=== PATIENT | female | born 2000 | race Caucasian/White ===

== ENCOUNTER 2019-06-17 18:03 | Emergency (ER) | payer MEDICAID ==
[2019-06-17] MEDS ORDERED: KETOROLAC TROMETHAMINE 60 MG/2 ML SDV IM ONE (20:08)
[2019-06-17] MEDS ORDERED: PROMETHAZINE HCL INJ 25 MG/1 ML VIAL IM ONE (20:08)
--- NOTE | 2019-06-17 20:10 | ER Document Report ---
ED Medical Screen (RME) - General Chief Complaint: Abdominal Pain Stated Complaint: ABDOMINAL PAIN POSSIBLE SIDE PAIN Time Seen by Provider: 06/17/19 20:01 Mode of Arrival: Wheelchair Information source: Patient Notes: Otherwise healthy 18-year-old female presenting with right lower quadrant abdominal pain. Patient reports pain started abruptly at 430 this afternoon. She reports associated nausea with vomiting, denies diarrhea or fever. She does report pain is worse with any movement. She states that she has had ovarian cysts in the past however this does not feel the same as that is the pain is any higher location. Exam: Point tenderness in the right lower quadrant although exam is limited due to patient's position in triage and unable to lay patient completely flat. I do suspect possible appendicitis with this patient so we are drawing labs immediately and I will monitor and add on appropriate imaging based upon lab results. I have greeted and performed a rapid initial assessment of this patient. A comprehensive ED assessment and evaluation of the patient, analysis of test results and completion of the medical decision making process will be conducted by additional ED providers. I have specifically instructed the patient or family members with the patient to immediately return to any nursing staff should anything change in the patient's condition or with their chief complaint.
[2019-06-17 20:49] LABS: ABSOLUTE BASOPHILS # (AUTO) 0.1 10^3/uL (0.0-0.2); ABSOLUTE EOSINOPHILS # (AUTO) 0.3 10^3/uL (0.0-0.6); ABSOLUTE LYMPHOCYTES (AUTO) 2.7 10^3/uL (0.5-4.7); ABSOLUTE MONOCYTES (AUTO) 0.8 10^3/uL (0.1-1.4); ABSOLUTE NEUT (AUTO) 6.3 10^3/uL (1.7-8.2); BASOPHILS % (AUTO) 0.7 % (0-2); EOSINOPHILS % (AUTO) 2.5 % (0-6); HEMATOCRIT 43.5 % (36.0-47.0); LYMPHOCYTES % (AUTO) 26.4 % (13-45); MEAN CORPUSCULAR HEMOGLOBIN 28.8 pg (27.0-33.4); MEAN CORPUSCULAR HGB CONC 34.6 g/dL (32.0-36.0); MEAN CORPUSCULAR VOLUME 83 fl (80-97); PLATELET COUNT 334 10^3/uL (150-450); RED BLOOD COUNT 5.22 10^6/uL (3.72-5.28); RED CELL DISTRIBUTION WIDTH 15.1 % (11.5-14.0); SEGMENTED NEUTROPHILS % (AUTO) 62.4 % (42-78); TOTAL CELLS COUNTED % (AUTO) 100 %; WHITE BLOOD COUNT 10.1 10^3/uL (4.0-10.5)
[2019-06-17 20:59] LABS: APPEARANCE,URINE SLIGHTLY-CLOUDY; BILIRUBIN,URINE NEGATIVE (NEGATIVE); COLOR,URINE YELLOW; GLUCOSE, URINE NEGATIVE (NEGATIVE); KETONES,URINE NEGATIVE (NEGATIVE); LEUKOCYTE ESTERASE,URINE SMALL (NEGATIVE); NITRITE,URINE NEGATIVE (NEGATIVE); PROTEIN,URINE NEGATIVE (NEGATIVE); URINE SPECIFIC GRAVITY 1.017; UROBILINOGEN,URINE NEGATIVE mg/dL (<2.0)
[2019-06-17 21:13] LABS: ALBUMIN 4.3 g/dL (3.5-5.0); ALKALINE PHOSPHATASE 75 U/L (38-126); ANION GAP 12 (5-19); ASPARTATE AMINO TRANSFERASE 22 U/L (14-36); BILIRUBIN,DIRECT 0.3 mg/dL (0.0-0.4); BILIRUBIN,TOTAL 0.6 mg/dL (0.2-1.3); BLOOD UREA NITROGEN 10 mg/dL (7-20); CALCIUM 9.9 mg/dL (8.4-10.2); CARBON DIOXIDE 23 mmol/L (22-30); CHLORIDE 107 mmol/L (98-107); GLUCOSE 82 mg/dL (75-110); POTASSIUM 4.1 mmol/L (3.6-5.0); TOTAL PROTEIN 7.9 g/dL (6.3-8.2)
[2019-06-17] MEDS ORDERED: FENTANYL CITRATE INJ/PF 100 MCG/2 ML AMPUL IM ONE (22:49)
[2019-06-17] MEDS ORDERED: NORMAL SALINE 1000 ML 1,000 ML IV ONE ×2 (23:36)
--- NOTE | 2019-06-17 23:37 | ER Document Report ---
ED General - General Chief Complaint: Abdominal Pain Stated Complaint: ABDOMINAL PAIN POSSIBLE SIDE PAIN Time Seen by Provider: 06/17/19 20:01 Mode of Arrival: Wheelchair TRAVEL OUTSIDE OF THE [place] IN LAST 30 DAYS: No - Related Data Allergies/Adverse Reactions: amoxicillin Allergy (Verified 06/17/19 20:09) morphine Allergy (Verified 06/17/19 20:09) ondansetron [From Zofran] Allergy (Verified 06/17/19 20:09) Penicillins Allergy (Verified 06/17/19 20:09) Sulfa (Sulfonamide Antibiotics) Allergy (Verified 06/17/19 20:09) Past Medical History - General Information source: Patient - Social History Smoking Status: Unknown if Ever Smoked Family History: Reviewed & Not Pertinent Patient has suicidal ideation: No Patient has homicidal ideation: No Physical Exam - Vital signs Vitals: Temp Pulse BP Pulse Ox 98.3 F 99 124/80 97 06/17/19 19:16 06/17/19 19:16 06/17/19 19:16 06/17/19 19:16 Interpretation: Normal, Other - Vital signs were reviewed - Notes Notes: Patient mention was 1 planing right lower quadrant abdominal pain is been gone for about 8 hours. Pain came on gradually and got progressively worse. Occasionally radiates across to the left side. She has had some nausea 2 episodes of vomiting anything eat or drink since then. She denies any fevers vaginal bleeding discharge diarrhea but has had some frequency. Patient says she is had an ovarian cyst in the past but this pain is different. Past medical history is unremarkable. Social history does not smoke or drink at all. LMP is unknown she is on control pills and has very little in the way of menses Review of systems pertinent positives and negatives in HPI otherwise all the systems were reviewed and acutely negative Allergies she said when morphine was given just into the Hep-Lock she had a localized rash or anaphylaxis no reaction when diluted with saline PHYSICIAN EXAM -vital signs are noted triage note and note from triage reviewed GENERAL: Well-appearing, well-nourished and in __mild distress from pain____ HEAD: Atraumatic, normocephalic. EYES: Pupils equal round and reactive to light, extraocular movements intact, s clera anicteric, conjunctiva are normal. ENT: nares patent, oropharynx clear without exudates. Moist mucous membranes. NECK: supple without lymphadenopathy LUNGS: Breath sounds clear to auscultation bilaterally and equal. No wheezes rales or rhonchi. HEART: Regular rate and rhythm without murmurs ABDOMEN: Soft, moderate tenderness in the right lower quadrant. The some mild percussion tenderness is pain with coughing is abduction of the hip. Some mild referred pain from the left to the rest the abdomen is nontender EXTREMITIES: No deformity, no edema. NEUROLOGICAL: No focal neurological deficits. Moves all extremities spontaneously and on command. PSYCH: Normal mood, normal affect. SKIN: Warm, Dry, normal turgor, no rashes or lesions noted. BACK-nontender in the midline Differential diagnosis ectopic ovarian cyst appendicitis Course - Re-evaluation Re-evalutation: 06/18/19 02:57 ED patient remained stable initially was given IM fentanyl with no significant relief. IV was started she was given IV fluids IV pain medicine with significant provement of her pain she has had serial exams here pain is improved she is feeling better tolerating liquids well Medical decision making patient presents with right lower quadrant pain of unclear etiology. Her work-up here is unremarkable. She has no is of a surgical abdomen she is feeling better and at this point she can be discharged home I discussed results of laboratory findings and diagnostic test with patient/family. The treatment plan was explained and I reviewed the discharge instructions with them. Questions were answered. The patient/family verbalizes understanding - Vital Signs Vital signs: Temp Pulse Resp BP Pulse Ox 98.3 F 67 20 104/72 99 06/18/19 00:47 06/18/19 00:47 06/18/19 00:47 06/18/19 00:47 06/18/19 00:47 - Laboratory Result Diagrams: 06/17/19 20:15 06/17/19 20:15 Laboratory results interpreted by me: 06/17/19 06/17/19 20:15 20:15 RDW 15.1 H Urine Blood SMALL H Ur Leukocyte Esterase SMALL H - Diagnostic Test Radiology reviewed: Reports reviewed Discharge - Discharge Clinical Impression: Vomiting Abdominal pain Qualifiers: Abdominal location: right lower quadrant Qualified Code(s): R10.31 - Right lower quadrant pain Condition: Good Disposition: HOME, SELF-CARE Instructions: Abdominal Pain ([facility]), Antinausea Medication ([facility]), Pain Medication Injection ([facility]), Toradol Injection ([facility]), Vomiting ([facility]) Additional Instructions: Please review the discharge instructions, they will tell you about your disease/injury and what you need to return to the ED for Return to the ED if you feel worse or can follow-up with your family doctor All of the tests that we performed are fairly unremarkable. This is very reassuring however there is a remote possibility that you could have a serious illness that is developing and it is too early for test to show any significant abnormalities. Very important that you follow-up with your family doctor in the next 12 to 24 hours if you are not significantly better and return to emergency department if you get worse Stay on clear liquids for 8 hours and then a bland diet for 2 to 3 days avoiding fatty greasy foods Follow-up in the care clinic in 12 to 24 hours if not better Prescriptions: Ketorolac Tromethamine [Toradol 10 mg Tablet] 10 mg PO Q6HP PRN #15 tablet PRN Reason: Promethazine HCl [Phenergan 25 mg Tablet] 25 mg PO ASDIR PRN #10 tablet PRN Reason: Referrals: [facility] [Provider Group] - Follow up as needed (12 to 24 hours if not better)
[2019-06-17] MEDS ORDERED: PROMETHAZINE HCL INJ 25 MG/1 ML VIAL IV ONE (23:43)
[2019-06-17] MEDS ORDERED: MORPHINE SULFATE 10 MG/ML INJ IV ONE (23:44)
--- NOTE | 2019-06-17 23:44 | RADIOLOGY REPORT (SQ) ---
EXAM DESCRIPTION: ULTRASOUND RIGHT LOWER QUADRANT CLINICAL HISTORY: Right lower quadrant pain COMPARISON: None available TECHNIQUE: Graded compression evaluation of the right lower quadrant was done for evaluation of appendix. FINDINGS: There is no visualization of a normal or a prominent appendix. There is normal peristalsis of bowel loops in the right lower quadrant. There was no documentation of rebound tenderness during ultrasound examination. There is no evidence of free fluid in the right lower quadrant. IMPRESSION: The appendix is not visualized. Negative for ultrasonographic evidence of acute appendicitis.
--- NOTE | 2019-06-18 01:52 | RADIOLOGY REPORT (SQ) ---
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 COMPARISON: None. TECHNIQUE: CT scan of the abdomen and pelvis was performed with IV contrast. This exam was performed according to our departmental dose-optimization program, which includes automated exposure control, adjustment of the mA and/or kV according to patient size and/or use of iterative reconstruction technique. FINDINGS: The lung bases are clear. No pleural or pericardial effusions. There is no hiatal hernia. The liver, spleen, pancreas, gallbladder, adrenal glands, and kidneys are unremarkable. No urinary stones are seen. The pelvic organs are also unremarkable. No small bowel obstruction. The appendix is normal. There is no evidence of diverticulitis. No intraperitoneal free fluid or free air is identified. The aorta is normal caliber. No acute bony findings are seen. There is no pathologic body wall hernia. IMPRESSION: Normal appendix.
[2019-06-18] MEDS ORDERED: PROMETHAZINE HCL 25 MG SUPP (4 SUPP/ER DISP) PR ONE (03:03)
[2019-06-18] MEDS ORDERED: NITROFURANTOIN MONOHYD/M-CRYST 100 MG CAPSULE PO ONE (03:15)
[2019-06-18 03:25] VITALS: BP 101/63
== END 2019-06-18 03:55 | disposition home or self-care (01) ==
LOC: ER 18:03
DX: N30.00 Acute cystitis without hematuria (principal); R10.31 Right lower quadrant pain; R10.813 Right lower quadrant abdominal tenderness; R11.2 Nausea with vomiting, unspecified; Z88.0 Allergy status to penicillin; Z88.6 Allergy status to analgesic agent; Z88.5 Allergy status to narcotic agent; Z88.8 Allergy status to other drugs, medicaments and biological substances; Z88.2 Allergy status to sulfonamides; Z79.3 Long term (current) use of hormonal contraceptives
CPT/HCPCS: 99284; 96372; 96361; 96374; 96375; 36415; 83690; 84703; 85025; 80053; 81001; 76705; 74177; J1885; J3010; J3490 ×2; J2270; J2550 ×2; J7030; J8499

== ENCOUNTER 2019-06-19 17:19 | Emergency (ER) | payer MEDICAID ==
[2019-06-19] MEDS ORDERED: METOCLOPRAMIDE HCL INJ/PF 10 MG/2 ML SDV IV ONE (17:27)
[2019-06-19] MEDS ORDERED: NORMAL SALINE 1000 ML 1,000 ML IV ONE (17:27)
[2019-06-19] MEDS ORDERED: KETOROLAC TROMETHAMINE INJ/PF 30 MG/1 ML SDV IV ONE (17:27)
--- NOTE | 2019-06-19 17:29 | ER Document Report ---
ED Medical Screen (RME) - General Chief Complaint: Abdominal Pain Stated Complaint: ABDOMINAL PAIN Time Seen by Provider: 06/19/19 17:25 TRAVEL OUTSIDE OF THE [place] IN LAST 30 DAYS: No - HPI Notes: 06/19/19 17:28 Patient is a 18-year-old female no significant past medical history who was seen 2 days ago and had an unremarkable work-up including CT scan of her abdomen as well as an abdominal ultrasound. Patient states that she continues to have right lower abdominal pain which she points to is mostly in her pelvic area. Pain does not radiate currently. She does continue to have nausea. She is uri nating normally and having normal bowel movements. No vaginal bleeding, odor, or discharge. She does have Nexplanon implanted to her left arm. No fever. She had a negative test at the last visit 2 days ago. I have treated and performed a rapid initial assessment of this patient. A comprehensive ED assessment and evaluation of the patient, analysis of test results and completion of medical decision making process will be conducted by additional ED providers. PHYSICAL EXAMINATION: GENERAL: Well-appearing, well-nourished and in no acute distress. A&Ox4. Answers questions appropriately. Abdomen: Limited exam in triage, but there is tenderness noted to the right lower pelvic area. - Related Data Allergies/Adverse Reactions: amoxicillin Allergy (Verified 06/17/19 20:09) morphine Allergy (Verified 06/17/19 20:09) ondansetron [From Zofran] Allergy (Verified 06/17/19 20:09) Penicillins Allergy (Verified 06/17/19 20:09) Sulfa (Sulfonamide Antibiotics) Allergy (Verified 06/17/19 20:09) Physical Exam - Vital signs Vitals: Temp Pulse Resp BP Pulse Ox 98.1 F 86 17 111/70 96 06/19/19 17:23 06/19/19 17:23 06/19/19 17:23 06/19/19 17:23 06/19/19 17:23 Course - Vital Signs Vital signs: Temp Pulse Resp BP Pulse Ox 98.1 F 86 17 111/70 96 06/19/19 17:23 06/19/19 17:23 06/19/19 17:23 06/19/19 17:23 06/19/19 17:23
[2019-06-19 18:24] LABS: ABSOLUTE EOSINOPHILS # (AUTO) 0.2 10^3/uL (0.0-0.6); ABSOLUTE LYMPHOCYTES (AUTO) 2.2 10^3/uL (0.5-4.7); ABSOLUTE MONOCYTES (AUTO) 0.7 10^3/uL (0.1-1.4); ABSOLUTE NEUT (AUTO) 5.7 10^3/uL (1.7-8.2); BASOPHILS % (AUTO) 0.5 % (0-2); EOSINOPHILS % (AUTO) 2.6 % (0-6); HEMATOCRIT 42.3 % (36.0-47.0); HEMOGLOBIN 14.4 g/dL (12.0-15.5); LYMPHOCYTES % (AUTO) 25.2 % (13-45); MEAN CORPUSCULAR HEMOGLOBIN 28.4 pg (27.0-33.4); MEAN CORPUSCULAR HGB CONC 34.2 g/dL (32.0-36.0); MEAN CORPUSCULAR VOLUME 83 fl (80-97); MONOCYTES % (AUTO) 7.4 % (3-13); PLATELET COUNT 319 10^3/uL (150-450); RED BLOOD COUNT 5.09 10^6/uL (3.72-5.28); RED CELL DISTRIBUTION WIDTH 14.8 % (11.5-14.0); SEGMENTED NEUTROPHILS % (AUTO) 64.3 % (42-78); TOTAL CELLS COUNTED % (AUTO) 100 %; WHITE BLOOD COUNT 8.9 10^3/uL (4.0-10.5)
[2019-06-19 18:28] LABS: APPEARANCE,URINE SLIGHTLY-CLOUDY; BILIRUBIN,URINE NEGATIVE (NEGATIVE); COLOR,URINE YELLOW; GLUCOSE, URINE NEGATIVE (NEGATIVE); KETONES,URINE NEGATIVE (NEGATIVE); PROTEIN,URINE NEGATIVE (NEGATIVE); URINE SPECIFIC GRAVITY 1.013; UROBILINOGEN,URINE NEGATIVE mg/dL (<2.0)
[2019-06-19 18:35] LABS: ALBUMIN 4.2 g/dL (3.5-5.0); ALKALINE PHOSPHATASE 67 U/L (38-126); ANION GAP 10 (5-19); ASPARTATE AMINO TRANSFERASE 27 U/L (14-36); BILIRUBIN,DIRECT 0.3 mg/dL (0.0-0.4); BILIRUBIN,TOTAL 0.4 mg/dL (0.2-1.3); BLOOD UREA NITROGEN 6 mg/dL (7-20); CALCIUM 9.5 mg/dL (8.4-10.2); CARBON DIOXIDE 24 mmol/L (22-30); CHLORIDE 107 mmol/L (98-107); GLUCOSE 88 mg/dL (75-110); TOTAL PROTEIN 7.7 g/dL (6.3-8.2)
--- NOTE | 2019-06-19 20:39 | RADIOLOGY REPORT (SQ) ---
EXAM DESCRIPTION: Transvaginal ultrasound of the pelvis CLINICAL HISTORY: Rt pelvic pain COMPARISON: None FINDINGS: Examination is technically limited due to overlying bowel gas. The uterus is 7.6 x 3.9 x 3.5 cm and has normal echotexture. No myometrial mass is seen. The endometrial double wall thickness is 7 mm. There is trace nonspecific fluid within the cervical region. The ovaries are normal in size. The right ovary measures 2.8 x 2.1 x 2.3 cm. The left ovary measures 3.3 x 1.7 x 1.8 cm. There is positive doppler flow to both ovaries. No significant free fluid is identified. IMPRESSION: Technically limited evaluation due to overlying bowel gas. No ultrasound findings to explain cause for right pelvic pain.
[2019-06-19] MEDS ORDERED: KETOROLAC TROMETHAMINE INJ/PF 30 MG/1 ML SDV ONE (21:18)
[2019-06-19] MEDS ORDERED: METOCLOPRAMIDE HCL INJ/PF 10 MG/2 ML SDV ONE (21:18)
--- NOTE | 2019-06-19 22:16 | ER Document Report ---
ED General - General Chief Complaint: Abdominal Pain Stated Complaint: ABDOMINAL PAIN Time Seen by Provider: 06/19/19 17:25 TRAVEL OUTSIDE OF THE [place] IN LAST 30 DAYS: No - HPI Notes: Ms. Mahan is a 18-year-old female nulligravida with a chief complaint of right lower quadrant abdominal pain and pelvic pain. Associated nausea without vomiting. No dysuria. Normal bowel movements. Decreased appetite. Patient was seen here by another provider 2 days ago and had a negative CT abdomen pelvis with normal appendix reported by radiologist. No elevation of white count at that time. She had small amount of pyuria. test was negative. She was felt to have a nonsurgical abdomen was sent out with Toradol and was placed on Macrobid for possible UTI and given some Phenergan for associated nausea. Since then she has some persistent pain which is very mild rated as 1-2 over 10 intensity and steady. Small amount of white vaginal discharge. Patient notes that she did not receive a pelvic exam or prior visit. Patient has implanted hormonal contraception and reports that this is been in place for a number of months and that her periods are very light and irregular because of this. No prior history of any abdominal surgery. No regular medications. Multiple allergies including amoxicillin, morphine, penicillin and Zofran. Patient denies use of drugs alcohol or tobacco. - Related Data Allergies/Adverse Reactions: amoxicillin Allergy (Verified 06/17/19 20:09) morphine Allergy (Verified 06/17/19 20:09) ondansetron [From Zofran] Allergy (Verified 06/17/19 20:09) Penicillins Allergy (Verified 06/17/19 20:09) Sulfa (Sulfonamide Antibiotics) Allergy (Verified 06/17/19 20:09) Past Medical History - General Information source: Patient - Social History Smoking Status: Never Smoker Frequency of alcohol use: None Drug Abuse: None Family History: Reviewed & Not Pertinent Patient has suicidal ideation: No Patient has homicidal ideation: No Review of Systems - Review of Systems Notes: Constitutional: Negative for fever. HENT: Negative for sore throat. Eyes: Negative for visual changes. Cardiovascular: Negative for chest pain. Respiratory: Negative for shortness of breath. Gastrointestinal: As per HPI. Genitourinary: Negative for dysuria. Musculoskeletal: Negative for back pain. Skin: Negative for rash. Neurological: Negative for headaches, weakness or numbness. 10 point ROS negative except as marked above and in HPI. Physical Exam - Vital signs Vitals: Temp Pulse Resp BP Pulse Ox 98.1 F 86 17 111/70 96 06/19/19 17:23 06/19/19 17:23 06/19/19 17:23 06/19/19 17:23 06/19/19 17:23 - Notes Notes: GENERAL: Well-developed well-nourished appearing in no acute distress. SKIN: Good turgor no rashes. HEAD: Normocephalic atraumatic. EYES: PERRLA. EOMI. Conjunctivae and sclerae clear. EARS: CANALS AND TMS CLEAR. NOSE: CLEAR. MOUTH: Moist mucosa. Good dentition. No stridor or edema. No drooling. NECK: Supple. No masses or thyromegaly. No adenopathy. Carotids 2+ without bruits. No JVD. BACK: Symmetrical without tenderness. CHEST: Respirations unlabored. Breath sounds clear and symmetrical. HEART: Regular rhythm. No murmur gallop or rub. ABDOMEN: Minimal tenderness right lower quadrant on deep palpation. Soft without masses, organomegaly or rebound. Bowel sounds normally active. No bruits. Pelvic: Normal external genitalia and hair distribution. No vaginal discharge. Cervix nulliparous. Uterus normal in size and position. No adnexal masses or tenderness. EXTREMITIES: No edema. No calf tenderness. Cap refill less than 1.5 seconds. Dorsalis pedis and posterior tibial pulses 3+ and symmetrical. NEUROLOGICAL: GCS 15. Alert and oriented x3. Normal gait. Fluent speech. Cranial nerves II through XII intact. Sensorimotor and cerebellar normal. Normal tone. PSYCHIATRIC: Appropriate affect. Course - Re-evaluation Re-evalutation: 06/19/19 22:49 Minimal symptoms and minimal tenderness on physical exam. Her labs again tonight were unremarkable here. Upon reviewing all these findings with the patient she states "well this is probably just a flareup of my previous di agnosis of irritable bowel syndrome". I told her I thought this probably was the case and advised her to continue current medications and follow-up with her primary care physician as an outpatient next 48 hours and of course to return here for any new or worsening symptoms. - Vital Signs Vital signs: Temp Pulse Resp BP Pulse Ox 98.3 F 97 18 107/58 L 96 06/19/19 22:46 06/19/19 22:46 06/19/19 22:46 06/19/19 22:46 06/19/19 22:46 - Laboratory Result Diagrams: 06/19/19 17:30 06/19/19 17:30 Laboratory results interpreted by me: 06/19/19 06/19/19 06/19/19 17:30 17:30 17:30 RDW 14.8 H BUN 6 L Urine Blood SMALL H Leukocyte Esterase Rfl MODERATE H - Diagnostic Test Radiology reviewed: Reports reviewed Radiology results interpreted by me: 06/19/19 22:49 Normal pelvic ultrasound per radiologist. Discharge - Discharge Clinical Impression: Abdominal pain Condition: Stable Disposition: HOME, SELF-CARE Instructions: Abdominal Pain ([facility]) Additional Instructions: Return here as needed for new or worsening symptoms: Pain that is worsening or unimproved Uncontrolled vomiting High fever or shaking chills Overall worsening Continue previously prescribed medications. Follow-up with your primary care provider within the next 48 hours.
[2019-06-19 22:47] VITALS: BP 107/58
[2019-06-19 22:56] LABS: BACTERIA (WET MOUNT) 4+ BACTERIA SEEN; EPITHELIALS (WET MOUNT) 3+ EPITHELIALS SEEN; RBCS (WET MOUNT) RARE RBCS SEEN; T.VAGINALIS (WET MOUNT) NO TRICHOMONAS SEEN; WBCS (WET MOUNT) 3+ WBCS SEEN; YEAST (WET MOUNT) NO YEAST SEEN
[2019-06-20 00:22] LABS: CHLAM PCR NOT DETECTED (NOT DETECT)
== END 2019-06-19 23:00 | disposition home or self-care (01) ==
LOC: ER 17:19
DX: R10.31 Right lower quadrant pain (principal); R10.2 Pelvic and perineal pain; R11.0 Nausea; Z88.0 Allergy status to penicillin; Z88.6 Allergy status to analgesic agent; Z88.2 Allergy status to sulfonamides
CPT/HCPCS: 99284; 96361; 96374; 96375; 36415; 87210 ×2; 85025; 80053; 81001; 87491; 87591; 76830; 93976; J1885; J2765; J7030

== ENCOUNTER 2019-08-07 17:22 | Emergency (ER) | payer MEDICAID ==
[2019-08-07] MEDS ORDERED: KETOROLAC TROMETHAMINE 60 MG/2 ML SDV IM ONE (17:53)
--- NOTE | 2019-08-07 17:53 | ER Document Report ---
ED Medical Screen (RME) - General Chief Complaint: Vaginal Bleeding Stated Complaint: VAGINAL BLEEDING Time Seen by Provider: 08/07/19 17:42 Notes: 18 y/o female presents for 2 week history of vaginal bleeding. States she had nexplanon replaced in February. Had similar bleeding after Nexplanon was first placed years ago. Associated cramping. States bleeding through 1 pad per hour. Nontoxic, well appearing. I have greeted and performed a rapid initial assessment of this patient. A comprehensive ED assessment and evaluation of the patient, analysis of test results and completion of the medical decision making process with be conducted by additional ED providers. TRAVEL OUTSIDE OF THE [place] IN LAST 30 DAYS: No - Related Data Allergies/Adverse Reactions: amoxicillin Allergy (Verified 08/07/19 17:41) ondansetron [From Zofran] Allergy (Verified 08/07/19 17:41) Penicillins Allergy (Verified 08/07/19 17:41) Sulfa (Sulfonamide Antibiotics) Allergy (Verified 08/07/19 17:41) Past Medical History - Social History Frequency of alcohol use: None Drug Abuse: None Physical Exam - Vital signs Vitals: Temp Pulse Resp BP Pulse Ox 97.9 F 83 14 118/70 100 08/07/19 17:25 08/07/19 17:25 08/07/19 17:25 08/07/19 17:25 08/07/19 17:25 Course - Vital Signs Vital signs: Temp Pulse Resp BP Pulse Ox 97.9 F 83 14 118/70 100 08/07/19 17:25 08/07/19 17:25 08/07/19 17:25 08/07/19 17:25 08/07/19 17:25
[2019-08-07 18:54] LABS: ABSOLUTE BASOPHILS # (AUTO) 0.1 10^3/uL (0.0-0.2); ABSOLUTE EOSINOPHILS # (AUTO) 0.1 10^3/uL (0.0-0.6); ABSOLUTE LYMPHOCYTES (AUTO) 2.1 10^3/uL (0.5-4.7); ABSOLUTE MONOCYTES (AUTO) 0.5 10^3/uL (0.1-1.4); ABSOLUTE NEUT (AUTO) 3.3 10^3/uL (1.7-8.2); BASOPHILS % (AUTO) 1.1 % (0-2); EOSINOPHILS % (AUTO) 2.2 % (0-6); HEMATOCRIT 45.1 % (36.0-47.0); HEMOGLOBIN 15.6 g/dL (12.0-15.5); LYMPHOCYTES % (AUTO) 34.8 % (13-45); MEAN CORPUSCULAR HEMOGLOBIN 28.9 pg (27.0-33.4); MEAN CORPUSCULAR HGB CONC 34.5 g/dL (32.0-36.0); MEAN CORPUSCULAR VOLUME 84 fl (80-97); MONOCYTES % (AUTO) 7.6 % (3-13); PLATELET COUNT 303 10^3/uL (150-450); RED BLOOD COUNT 5.39 10^6/uL (3.72-5.28); SEGMENTED NEUTROPHILS % (AUTO) 54.3 % (42-78); TOTAL CELLS COUNTED % (AUTO) 100 %
[2019-08-07 19:23] LABS: ALBUMIN 4.2 g/dL (3.5-5.0); ALKALINE PHOSPHATASE 63 U/L (38-126); ANION GAP 10 (5-19); ASPARTATE AMINO TRANSFERASE 23 U/L (14-36); BILIRUBIN,DIRECT 0.3 mg/dL (0.0-0.4); BILIRUBIN,TOTAL 0.7 mg/dL (0.2-1.3); BLOOD UREA NITROGEN 6 mg/dL (7-20); CALCIUM 9.7 mg/dL (8.4-10.2); CARBON DIOXIDE 26 mmol/L (22-30); CHLORIDE 103 mmol/L (98-107); GLUCOSE 85 mg/dL (75-110); POTASSIUM 4.1 mmol/L (3.6-5.0); TOTAL PROTEIN 7.8 g/dL (6.3-8.2)
--- NOTE | 2019-08-07 20:39 | RADIOLOGY REPORT (SQ) ---
US PELVIS HISTORY: 18 years Female heavy vaginal bleeding x2 weeks. COMPARISON: Pelvic ultrasound June 19, 2019. Technique: Transabdominal Imaging of the pelvis was performed. Color and spectral imaging was performed. Uterus: The uterus is anteverted. It measures 7.3 x 3.5 x 4.7 cm. The endometrium measures 4 mm. Cervix is closed and measures 2.1 cm in length. There is a small amount of fluid within the endocervical canal. Right Ovary: Measures 2.9 x 2.0 x 2.3 cm and is grossly normal.. Normal color and spectral doppler waveforms Left Ovary: Measures 3.2 x 1.8 x 2.6 cm and is grossly normal.. Normal color and spectral doppler waveforms Other: No free fluid. IMPRESSION: Unremarkable pelvic ultrasound. There is a small amount of fluid in the endocervical canal.
[2019-08-07 23:59] LABS: APPEARANCE,URINE SLIGHTLY-CLOUDY; BILIRUBIN,URINE NEGATIVE (NEGATIVE); COLOR,URINE YELLOW; GLUCOSE, URINE NEGATIVE (NEGATIVE); KETONES,URINE 20 mg/dL (NEGATIVE); PROTEIN,URINE 30 mg/dL (NEGATIVE); URINE SPECIFIC GRAVITY 1.018
[2019-08-08] MEDS ORDERED: MORPHINE SULFATE 10 MG/ML INJ IV ONE (00:48)
[2019-08-08] MEDS ORDERED: PROMETHAZINE HCL 25 MG TABLET PO ONE (00:48)
[2019-08-08] MEDS ORDERED: TRANEXAMIC ACID INJ/PF 1,000 MG/10 ML SDV IV ONE (00:48)
--- NOTE | 2019-08-08 00:50 | ER Document Report ---
ED GI/ - General Chief Complaint: Vaginal Bleeding Stated Complaint: VAGINAL BLEEDING Time Seen by Provider: 08/07/19 17:42 Primary Care Provider: [facility] [Provider Group] - Follow up in 3-5 days Notes: Patient is a 18-year-old female that comes to the emergency department for chief complaint of heavy vaginal bleeding for the past 2 weeks. She states that she also had a menstrual cycle at the beginning of the month. She states she had similar problem 1 year ago when her Nexplanon was inserted. She reports occasional sharp cramping with the bleeding. She denies dizziness or passing out. She denies any other symptoms including fever, dysuria, vaginal discharge, flank pain. She denies history of ovarian cysts. She denies any surgeries. She takes no daily medications except Zoloft. TRAVEL OUTSIDE OF THE [place] IN LAST 30 DAYS: No - Related Data Allergies/Adverse Reactions: amoxicillin Allergy (Verified 08/07/19 17:41) ondansetron [From Zofran] Allergy (Verified 08/07/19 17:41) Penicillins Allergy (Verified 08/07/19 17:41) Sulfa (Sulfonamide Antibiotics) Allergy (Verified 08/07/19 17:41) Past Medical History - General Information source: Patient Last Menstrual Period: 07/22/2019 - Social History Smoking Status: Never Smoker Frequency of alcohol use: None Drug Abuse: None Lives with: Family Family History: Reviewed & Not Pertinent Patient has suicidal ideation: No Patient has homicidal ideation: No Review of Systems - Review of Systems Constitutional: No symptoms reported EENT: No symptoms reported Cardiovascular: No symptoms reported Respiratory: No symptoms reported Gastrointestinal: See HPI Genitourinary: No symptoms reported Female Genitourinary: See HPI Musculoskeletal: No symptoms reported Skin: No symptoms reported Hematologic/Lymphatic: No symptoms reported Neurological/Psychological: No symptoms reported Physical Exam - Vital signs Vitals: Temp Pulse Resp BP Pulse Ox 97.9 F 83 14 118/70 100 08/07/19 17:25 08/07/19 17:25 08/07/19 17:25 08/07/19 17:25 08/07/19 17:25 - Notes Notes: GENERAL: Alert, interacts well. No acute distress. HEAD: Normocephalic, atraumatic. EYES: Pupils equal, round, and reactive to light. Extraocular movements intact. ENT: Oral mucosa moist, tongue midline. Oropharynx unremarkable. Airway patent. LUNGS: Clear to auscultation bilaterally, no wheezes, rales, or rhonchi. No respiratory distress. HEART: Regular rate and rhythm. No murmur ABDOMEN: Minimal generalized lower abdominal tenderness GENITOURINARY: Deferred EXTREMITIES: Moves all 4 extremities spontaneously. No edema, normal radial and dorsalis pedis pulses bilaterally. No cyanosis. BACK: no cervical, thoracic, lumbar midline tenderness. No saddle anesthesia, normal distal neurovascular exam. Moves all extremities in full range of motion. NEUROLOGICAL: Alert and oriented x3. Normal speech. Cranial nerves II through XII grossly intact. PSYCH: Normal affect, normal mood. SKIN: Warm, dry, normal turgor. No rashes or lesions noted. Course - Re-evaluation Re-evalutation: test negative. CBC unremarkable and hemoglobin is actually slightly elevated. Patient refused transvaginal ultrasound but the ultrasound performed does not show any obvious concerning findings. Patient declines pelvic exam. Patient does have Nexplanon and has had breakthrough bleeding before with this. I suspect this is hormonal. Patient is requesting treatment for the bleeding, we discussed options and decided to give her a dose of TXA here. She was referred to [facility] for close follow-up and additional management. Patient states understanding and agreement with plan. Stable and well-appearing at time of discharge. - Vital Signs Vital signs: Temp Pulse Resp BP Pulse Ox 97.9 F 64 18 108/71 99 08/08/19 03:13 08/08/19 03:13 08/08/19 03:13 08/08/19 03:13 08/08/19 03:13 - Laboratory Result Diagrams: 08/07/19 18:24 08/07/19 18:24 Laboratory results interpreted by me: 08/07/19 08/07/19 08/07/19 18:24 18:24 23:15 RBC 5.39 H Hgb 15.6 H BUN 6 L Urine Protein 30 H Urine Ketones 20 H Urine Blood LARGE H Urine Urobilinogen 2.0 H Discharge - Discharge Clinical Impression: Menometrorrhagia Condition: Stable Disposition: HOME, SELF-CARE Additional Instructions: Your ultrasound, test, and laboratory work-up did not show any obvious causes of your symptoms. Please follow close with [facility] referral for additional management of your bleeding and contraception. Recommendation is to take ibuprofen or naproxen for the cramping or pain. Return if you worsen including dizziness, passing out, severe worsening pain, fever, vomiting, or any other concerning symptoms. Referrals: [facility] [Provider Group] - Follow up in 3-5 days
[2019-08-08 03:13] VITALS: BP 108/71
== END 2019-08-08 03:14 | disposition home or self-care (01) ==
LOC: ER 17:22
DX: N92.1 Excessive and frequent menstruation with irregular cycle (principal); R25.2 Cramp and spasm; R10.819 Abdominal tenderness, unspecified site; Z79.899 Other long term (current) drug therapy; Z97.5 Presence of (intrauterine) contraceptive device; Z88.2 Allergy status to sulfonamides; Z88.0 Allergy status to penicillin; Z88.8 Allergy status to other drugs, medicaments and biological substances
CPT/HCPCS: 99284; 96372; 96374; 36415; 84703; 85025; 80053; 81001; 76856; 93976; J1885; J2270; J3490 ×2

== ENCOUNTER 2019-12-03 21:08 | Emergency (ER) | payer MEDICAID ==
[2019-12-03] MEDS ORDERED: PROCHLORPERAZINE EDISYLATE INJ 10 MG/2 ML VIAL IV ONE (21:38)
[2019-12-03] MEDS ORDERED: KETOROLAC TROMETHAMINE 60 MG/2 ML SDV IV ONE (21:38)
[2019-12-03] MEDS ORDERED: NORMAL SALINE 1000 ML 1,000 ML IV ONE (21:38)
[2019-12-03] MEDS ORDERED: DIPHENHYDRAMINE HCL 50 MG/ML VIAL IV ONE (21:38)
--- NOTE | 2019-12-03 21:44 | ER Document Report ---
ED General - General Stated Complaint: COVID SYMPTOMS Time Seen by Provider: 12/03/19 21:18 Notes: 19-year-old female presents emergency department complaining of multiple symptoms. They appear to be into 3 different sets. Her primary concern is that for the past several months she is been having 2 periods a month, her most recent menstrual cycle started 2 to 3 days ago but today it became very heavy, she states she is going through approximately 2 pads every hour for the past 2 to 3 hours. States that with these irregular. She has been feeling very tired and very fatigued. Denies any dizziness or lightheadedness. Denies any chest pain, cough or shortness of breath. Patient second complaint is she developed nausea and vomiting last evening as sociated with abdominal pain that she states is mostly on the right-hand side anteriorly and posteriorly. States that she feels like she has a low-grade fever, and has not actually checked her temperature. Admits to sweats and chills. Admits diarrhea, denies blood in her stool or in her vomit though she admits it is difficult to tell for certain if there is blood in her stool as she is having heavy vaginal bleeding. Has a history of IBS, states this feels completely different. Patient's third complaint is she has frequent headaches that she describes as migraines although they have never been formally diagnosed. Patient states that for the past week she has been getting these headaches that she states usually come to about her eyes but it is concerning to her that they are more painful than usual today and that it goes to behind her eyes as opposed to just coming up to her eyes. Denies any blurry vision or stiff neck. The frequency of these headaches has not changed. There are no new associated symptoms with them. Denies anosmia or change in taste. TRAVEL OUTSIDE OF THE [place] IN LAST 30 DAYS: No - Related Data Allergies/Adverse Reactions: amoxicillin Allergy (Verified 08/07/19 17:41) ondansetron [From Zofran] Allergy (Verified 08/07/19 17:41) Penicillins Allergy (Verified 08/07/19 17:41) Sulfa (Sulfonamide Antibiotics) Allergy (Verified 08/07/19 17:41) Past Medical History - General Information source: Patient - Social History Smoking Status: Never Smoker Frequency of alcohol use: Social Drug Abuse: None Family History: Reviewed & Not Pertinent Review of Systems - Review of Systems Constitutional: Chills, Diaphoresis, Fever - Subjective, Malaise, Weakness EENT: See HPI - Headache/pain behind the eyes.. denies: Eye pain, Blurred vision, Double vision, Nose pain, Nose congestion, Nose discharge, Sinus pressure, Sinus discharge, Throat pain Cardiovascular: No symptoms reported. denies: Chest pain, Palpitations, Lightheaded, Edema Respiratory: No symptoms reported Gastrointestinal: See HPI, Abdominal pain, Diarrhea, Nausea, Vomiting. denies: Constipation, Blood streaked bowels Genitourinary: No symptoms reported Female Genitourinary: See HPI, Heavy/abnormal periods, Irregular period Musculoskeletal: See HPI, Back pain Neurological/Psychological: See HPI, Headaches -: Yes All other systems reviewed and negative Physical Exam - Vital signs Vitals: Temp Pulse Resp BP Pulse Ox 98.8 F 86 16 112/62 99 12/03/19 21:30 12/03/19 21:30 12/03/19 21:30 12/03/19 21:30 12/03/19 21:30 Interpretation: Normal - Notes Notes: GENERAL: Alert, interacts well. No acute distress. HEAD: Normocephalic, atraumatic EYES: Pupils equal, round and reactive to light, extraocular movements intact. ENT: Oral mucosa moist, tongue midline. NECK: Full range of motion, supple, trachea midline. LUNGS: Clear to auscultation bilaterally, no wheezes, rales or rhonchi, no respiratory distress. HEART: Regular rate and rhythm, no murmurs, gallops, rubs. ABDOMEN: Soft, right lower quadrant tenderness palpation, no guarding, no rigidity, no rebounding, nondistended, bowel sounds present in all 4 quadrants. EXTREMITIES: Moves all 4 extremities spontaneously, no edema, radial and dorsalis pedis pulses 2/4 bilaterally. No cyanosis. NEUROLOGICAL: Alert and oriented x3, normal speech, no facial droop. PSYCH: Normal mood, normal affect. SKIN: Warm, Dry, normal turgor, no rashes or lesions noted. Course - Re-evaluation Re-evalutation: 12/04/19 01:10 CBC unremarkable, no anemia, no leukocytosis, CMP unremarkable, lipase normal, test negative, urinalysis shows moderate blood but only 2 RBCs. No evidence of dehydration or infection. Abdomen/Pelvis CT 12/03/19 22:46 IMPRESSION: 1. Moderate to large L4-L5 disc protrusion probably causes moderate to severe thecal sac compression. Recommend MRI of the lumbar spine. 2. Bilateral nephrolithiasis including a 0.5 cm left renal stone. No hydronephrosis and no hydroureter. Though it is not mentioned in the summary, the CT shows a prominent right ovary at 4.1 cm. Patient is having RLQ pain on exam, will be sent for transvaginal US to look for ovarian torsion. 12/04/19 01:46 Transvaginal ultrasound did not show any evidence of torsion, there was good blood flow. The ovary was normal-appearing. No masses. I did see the finding of the moderate to large L4-L5 disc protrusion on the CAT scan. Patient has no low back pain, no bowel or bladder dysfunction, no numbness or tingling, no findings whatsoever on history or physical examination that would correlate to compression of the thecal sac. Patient was informed of this finding, will follow-up as an outpatient. No indication for emergent MRI this evening. 12/04/19 01:48 Patient has not had no further vomiting in the emergency department, pain has improved, no evidence of acute infection requiring antibiotics or surgery at this time. Patient will be swab for novel coronavirus. Patient will be discharged home with [facility]ana. Asked to follow-up with [facility] for her menometrorrhagia. Asked to follow-up with neurology for her chronic headaches. - Vital Signs Vital signs: Temp Pulse Resp BP Pulse Ox 98.8 F 86 16 112/62 99 12/03/19 22:54 12/03/19 21:30 12/03/19 21:30 12/03/19 21:30 12/03/19 21:30 - Laboratory Result Diagrams: 12/03/19 22:15 12/03/19 22:15 Laboratory results interpreted by me: 12/03/19 12/03/19 12/03/19 22:15 22:15 23:06 RBC 5.33 H Glucose 112 H Total Protein 9.0 H Urine Blood MODERATE H Discharge - Discharge Clinical Impression: Menometrorrhagia Chronic headaches Qualifiers: Headache type: unspecified Intractability: intractable Qualified Code(s): R51 - Headache Nausea & vomiting Qualifiers: Vomiting type: unspecified Vomiting Intractability: non-intractable Qualified Code(s): R11.2 - Nausea with vomiting, unspecified Abdominal pain Qualifiers: Abdominal location: right lower quadrant Qualified Code(s): R10.31 - Right lower quadrant pain Condition: Stable Disposition: HOME, SELF-CARE Additional Instructions: Today we did not find any evidence of severe infection that would require antibiotics, hospitalization or surgery. I have prescribed you phenergan to help with your vomiting. Please return should your abdominal pain worsen or your vomiting not be controlled by the phenergan. Regarding your vaginal bleeding today you are not and you are not losing a life-threatening amount of blood. You are not anemic. Please follow- up with your primary care physician or your [facility] to further investigate your irregular periods. Sometimes they can put you on medications including control that will help to better regulate your periods and relieve your symptoms. Please return should you start feeling dizzy or lightheaded or if you develop vaginal bleeding that goes through more than 1 pad an hour for more than 4 hours. Your ovary was normal on ultrasound. It had good blood flow, there were no masses and there were no cysts. Regarding your frequent recurrent headaches it is very important that you follow-up with a neurologist as an outpatient to further discuss your regular headaches. You should return if they become associated with a fever, a stiff neck that is very painful to move or unable to be move, difficulty seeing or any new or concerning symptoms that you have not had before. Of note on your CAT scan we did see a very large herniated disc between L4 and L5. Your primary care physician may wish to order an MRI as an outpatient to see if it pushes on any of the nerves in your back. Today you did not have any symptoms of nerve impingement. Should you develop difficulty controlling your bowels or bladder, develop numbness between your legs, develop difficulty walking because of weakness in your legs or any new or concerning symptoms please return to the emergency department. Prescriptions: Promethazine HCl [Phenergan 25 mg Tablet] 1 tab PO Q6H PRN #15 tablet PRN Reason: For Nausea/Vomiting
[2019-12-03 22:28] LABS: ABSOLUTE BASOPHILS # (AUTO) 0.1 10^3/uL (0.0-0.2); ABSOLUTE EOSINOPHILS # (AUTO) 0.2 10^3/uL (0.0-0.6); ABSOLUTE LYMPHOCYTES (AUTO) 2.1 10^3/uL (0.5-4.7); ABSOLUTE MONOCYTES (AUTO) 0.8 10^3/uL (0.1-1.4); ABSOLUTE NEUT (AUTO) 7.2 10^3/uL (1.7-8.2); BASOPHILS % (AUTO) 0.6 % (0-2); EOSINOPHILS % (AUTO) 1.7 % (0-6); HEMATOCRIT 45.3 % (36.0-47.0); HEMOGLOBIN 15.4 g/dL (12.0-15.5); LYMPHOCYTES % (AUTO) 20.6 % (13-45); MEAN CORPUSCULAR HEMOGLOBIN 28.9 pg (27.0-33.4); MEAN CORPUSCULAR VOLUME 85 fl (80-97); MONOCYTES % (AUTO) 7.5 % (3-13); PLATELET COUNT 262 10^3/uL (150-450); RED BLOOD COUNT 5.33 10^6/uL (3.72-5.28); SEGMENTED NEUTROPHILS % (AUTO) 69.6 % (42-78); TOTAL CELLS COUNTED % (AUTO) 100 %; WHITE BLOOD COUNT 10.3 10^3/uL (4.0-10.5)
[2019-12-03 22:45] LABS: ALBUMIN 4.8 g/dL (3.5-5.0); ALKALINE PHOSPHATASE 75 U/L (38-126); ANION GAP 8 (5-19); ASPARTATE AMINO TRANSFERASE 31 U/L (14-36); BILIRUBIN,DIRECT 0.2 mg/dL (0.0-0.4); BILIRUBIN,TOTAL 0.9 mg/dL (0.2-1.3); BLOOD UREA NITROGEN 7 mg/dL (7-20); CALCIUM 9.7 mg/dL (8.4-10.2); CARBON DIOXIDE 28 mmol/L (22-30); CHLORIDE 102 mmol/L (98-107); GLUCOSE 112 mg/dL (75-110); POTASSIUM 3.7 mmol/L (3.6-5.0)
[2019-12-03 23:40] LABS: APPEARANCE,URINE CLEAR; BILIRUBIN,URINE NEGATIVE (NEGATIVE); COLOR,URINE YELLOW; GLUCOSE, URINE NEGATIVE (NEGATIVE); KETONES,URINE NEGATIVE (NEGATIVE); LEUKOCYTE ESTERASE,URINE NEGATIVE (NEGATIVE); NITRITE,URINE NEGATIVE (NEGATIVE); PROTEIN,URINE NEGATIVE (NEGATIVE); UROBILINOGEN,URINE NEGATIVE mg/dL (<2.0)
--- NOTE | 2019-12-04 00:48 | RADIOLOGY REPORT (SQ) ---
EXAM DESCRIPTION: CT ABDOMEN PELVIS WITH IV CONTRAST COMPLETED DATE/TME: 12/03/2019 22:46 CLINICAL HISTORY: 19 years Female, RLQ abd pain, vomiting Comparison: 06/18/19 Technique: IV contrast. Coronal and sagittal reformat. This exam was performed according to our departmental dose-optimization program, which includes automated exposure control, adjustment of the mA and/or kV according to patient size and/or use of iterative reconstruction technique. [facility]: Dose Right [facility]: CareDose [facility]: Dose Right [facility]: Teradose 4D [facility]: [place] LIMITATIONS: None Findings: Moderate to large L4-L5 disc protrusion probably causes moderate to severe thecal sac compression. Recommend MRI of the lumbar spine. Bilateral nephrolithiasis including a 0.5 cm left renal stone. No hydronephrosis and no hydroureter. Low attenuation diffuse bowel wall thickening suggestive of prior infectious/inflammatory insult. Prominent 4.1 cm right ovary. No ascites. No pneumoperitoneum. No evidence of appendicitis. Likely normal appendix partially discerned. No gross evidence of gallbladder inflammation, hepatobiliary obstruction, or portal vein defect. No bowel obstruction. No evidence of abdominal aortic aneurysm. Inferior thorax, liver, gallbladder, pancreas, spleen, adrenals, renal system, gastrointestinal tract, pelvic organs, lymphatics, vasculature, and musculoskeleton appear otherwise unremarkable. IMPRESSION: 1. Moderate to large L4-L5 disc protrusion probably causes moderate to severe thecal sac compression. Recommend MRI of the lumbar spine. 2. Bilateral nephrolithiasis including a 0.5 cm left renal stone. No hydronephrosis and no hydroureter.
--- NOTE | 2019-12-04 01:33 | RADIOLOGY REPORT (SQ) ---
US PELVIS TRANSVAGINAL HISTORY: 19 years Female pain. Right ovarian enlargement. COMPARISON: CT scan of the abdomen and pelvis obtained earlier in the morning Technique: Transvaginal Imaging of the pelvis was performed. Color and spectral imaging was performed. Uterus: The uterus measures 8.2 x 4.8 x 3.6 cm and is morphologically normal. The cervix is closed and measures 2.9 cm. There is trace fluid in the cervix. Endometrium is normal measures 1.1 mm Right Ovary: The ovary measures 4.1 x 2.7 x 2.1 cm and is morphologically normal . Normal color and spectral doppler waveforms Left Ovary: The left ovary measures 2.3 x 1.7 x 1.8 cm and is morphologically normal with normal follicles. Normal color and spectral doppler waveforms Other: No adnexal mass. No free fluid IMPRESSION: Unremarkable pelvic ultrasound. No acute process.
[2019-12-04 02:13] VITALS: BP 115/56
== END 2019-12-04 02:23 | disposition home or self-care (01) ==
LOC: ER 21:08
DX: N92.1 Excessive and frequent menstruation with irregular cycle (principal); R51 Headache; N20.0 Calculus of kidney; R31.9 Hematuria, unspecified; R11.2 Nausea with vomiting, unspecified; R10.31 Right lower quadrant pain; R10.813 Right lower quadrant abdominal tenderness; M51.26 Other intervertebral disc displacement, lumbar region; R53.83 Other fatigue; R68.83 Chills (without fever); R61 Generalized hyperhidrosis; R53.81 Other malaise; R53.1 Weakness; R19.7 Diarrhea, unspecified; Z87.19 Personal history of other diseases of the digestive system; Z88.0 Allergy status to penicillin; Z88.8 Allergy status to other drugs, medicaments and biological substances
CPT/HCPCS: 99284; 96361; 96374; 96375; 36415; 83690; 84703; 85025; 80053; 81001; 76830; 93976; 74177; J1200; J0780; J7030

== ENCOUNTER 2019-12-21 19:48 | Emergency (ER) | payer MEDICAID ==
[2019-12-21 19:53] VITALS: BP 121/72
[2019-12-21] MEDS ORDERED: NAPROXEN 250 MG TABLET PO ONE (20:13)
--- NOTE | 2019-12-21 20:14 | ER Document Report ---
ED GI/ - General Chief Complaint: Pelvic Pain Stated Complaint: ABDOMINAL PAIN Time Seen by Provider: 12/21/19 20:07 Primary Care Provider: [facility] [Provider Group] - Follow up as needed Mode of Arrival: Ambulatory Information source: Patient Notes: 19-year-old female presented to ED for complaint of bilateral pelvic and back pain. She states she does have some burning with urination. She states she is on her cycle. She states last time she had this much pain or her cycle she received morphine. She is alert oriented respirations regular nonlabored speaking in full sentences. She does not look in any distress at all. TRAVEL OUTSIDE OF THE [place] IN LAST 30 DAYS: No - HPI Patient complains to provider of: Pelvic pain - She states the cycle started yesterday bilateral pelvic and low back pain cramping Onset: Yesterday Timing/Duration: Intermittent Quality of pain: Cramping Severity at maximum: Moderate Severity in ED: Moderate Location: Pelvis, Other - Low back Vaginal bleeding (Compared to normal period): Similar LMP: Started yesterday Associated symptoms: Other - Low back and pelvic pain on cycle Exacerbated by: Movement Relieved by: Denies Similar symptoms previously: Yes Recently seen / treated by doctor: Yes - Related Data Allergies/Adverse Reactions: amoxicillin Allergy (Verified 08/07/19 17:41) ondansetron [From Zofran] Allergy (Verified 08/07/19 17:41) Penicillins Allergy (Verified 08/07/19 17:41) Sulfa (Sulfonamide Antibiotics) Allergy (Verified 08/07/19 17:41) Past Medical History - General Information source: Patient - Social History Smoking Status: Never Smoker Chew tobacco use (# tins/day): No Frequency of alcohol use: None Drug Abuse: None Lives with: Family Family History: Reviewed & Not Pertinent Patient has homicidal ideation: No - Past Medical History Cardiac Medical History: Reports: None Pulmonary Medical History: Reports: None EENT Medical History: Reports: None Neurological Medical History: Reports: None Endocrine Medical History: Reports: None Renal/ Medical History: Reports: Hx Kidney Stones, Other - Enlarged right ovary Malignancy Medical History: Reports: None GI Medical History: Reports: None Musculoskeletal Medical History: Reports None Skin Medical History: Reports None Psychiatric Medical History: Reports: Hx Depression Traumatic Medical History: Reports: None Infectious Medical History: Reports: None Surgical Hx: Negative Past Surgical History: Reports: None - Immunizations Immunizations up to date: Yes Hx Diphtheria, Pertussis, Tetanus Vaccination: Yes Review of Systems - Review of Systems Constitutional: No symptoms reported EENT: No symptoms reported Cardiovascular: No symptoms reported Respiratory: No symptoms reported Gastrointestinal: No symptoms reported Genitourinary: No symptoms reported Female Genitourinary: Other - Painful menstrual cycle Musculoskeletal: No symptoms reported Skin: No symptoms reported Hematologic/Lymphatic: No symptoms reported Neurological/Psychological: No symptoms reported -: Yes All other systems reviewed and negative Physical Exam - Vital signs Vitals: Temp Pulse Resp BP Pulse Ox 98.3 F 87 18 121/72 97 12/21/19 19:52 12/21/19 19:52 12/21/19 19:52 12/21/19 19:52 12/21/19 19:52 Interpretation: Normal - General General appearance: Appears well, Alert - HEENT Head: Normocephalic, Atraumatic Eyes: Normal Pupils: PERRL - Respiratory Respiratory status: No respiratory distress Chest status: Nontender Breath sounds: Normal Chest palpation: Normal - Cardiovascular Rhythm: Regular Heart sounds: Normal auscultation Murmur: No - Abdominal Inspection: Normal Distension: No distension Bowel sounds: Normal Tenderness: Nontender Organomegaly: No organomegaly - Back Back: Normal, Nontender - Extremities General upper extremity: Normal inspection, Nontender, Normal color, Normal ROM, Normal temperature General lower extremity: Normal inspection, Nontender, Normal color, Normal ROM, Normal temperature, Normal weight bearing. No: Amy's sign - Neurological Neuro grossly intact: Yes Cognition: Normal Orientation: AAOx4 Rising [place] Coma Scale Eye Opening: Spontaneous [place] Coma Scale Verbal: Oriented Rising [place] Coma Scale Motor: Obeys Commands Rising Fawn Coma Scale Total: 15 Speech: Normal Motor strength normal: LUE, RUE, LLE, RLE Sensory: Normal - Psychological Associated symptoms: Normal affect, Normal mood - Skin Skin Temperature: Warm Skin Moisture: Dry Skin Color: Normal Course - Re-evaluation Re-evalutation: 12/21/19 22:36 Urine test was negative. Patient states she has the same pain every month with her menstrual cycle. She did request morphine for her menstrual pain. I did instruct her that I would give her Toradol or naproxen and discharged home with naproxen. Patient did verbalize she would prefer the naproxen and she will follow-up with [facility]. - Vital Signs Vital signs: Temp Pulse Resp BP Pulse Ox 98.3 F 87 18 121/72 97 12/21/19 19:52 12/21/19 19:52 12/21/19 19:52 12/21/19 19:52 12/21/19 19:52 - Laboratory Laboratory results interpreted by me: 12/21/19 20:21 Urine Blood MODERATE H Ur Leukocyte Esterase TRACE H Discharge - Discharge Clinical Impression: pelvic pain during menstal cycle Condition: Stable Disposition: HOME, SELF-CARE Additional Instructions: PELVIC PAIN: There are many causes of pain in the pelvic area. The cause could be the tubes, ovaries, uterus, intestines, appendix, pelvic muscles and connective tissue, or the urinary tract. The cause of your pelvic pain is not clear. However, it seems safe to treat you outside the hospital. If the pain sounds like a temporary problem, we sometimes wait to see if it goes away. Other patients may need additional tests, such as pelvic ultrasound or cultures. Conditions may change. Call us or come back for reexamination if any problems occur, such as: (1) Pain that becomes more severe, steady, or becomes concentrated in one specific area. Also, pain that is more severe with movement or coughing. (2) Vomiting that persists or becomes more frequent. (3) Blood in the vomitus, urine, or bowel movements. Blood in the stool may have a tarry or black appearance. (4) Shaking chills or fever greater than 100 degrees. (5) The abdomen becomes more distended or swollen. (6) Bowel movements cease. (7) Heavy vaginal bleeding. Anti-Inflammatory Medication You have received a prescription for an antiinflammatory agent. This is an excellent, safe drug for pain control. In addition, it has potent antiinflammatory effects which are beneficial, especially in the treatment of injuries, arthritis, or tendonitis. It's best to take this medicine with food. Persons with ulcer disease or allergy to aspirin should notify their physician of this before taking this drug. Take the medication exactly as prescribed. Don't take additional doses unless instructed to do so by your doctor. If you develop wheezing, shortness of breath, hives, faintness, stomach pain, vomiting, or dark black stools, return for re-evaluation at once. Warm Packs After approximately two days, apply gentle heat (such as a heating pad or hot water bottle) for about 20 to 30 minutes about every two hours -- at least four times daily. Warmth and elevation will help you make a more rapid recovery, and will ease the pain considerably. Do not use HOT heat, and never apply heat for longer than 30 minutes. The continuous heat can invisibly damage skin and muscles -- even when no burn is seen on the surface. Damaged muscles can make you MORE sore. FOLLOW-UP CARE: If you have been referred to a physician for follow-up care, call the physicians office for an appointment as you were instructed or within the next two days. If you experience worsening or a significant change in your symptoms, notify the physician immediately or return to the Emergency Department at any time for re-evaluation. Prescriptions: Naproxen 500 mg PO BIDP PRN #14 tablet PRN Reason: Referrals: [facility] [Provider Group] - Follow up as needed
[2019-12-21 20:59] LABS: APPEARANCE,URINE CLEAR; BILIRUBIN,URINE NEGATIVE (NEGATIVE); COLOR,URINE YELLOW; GLUCOSE, URINE NEGATIVE (NEGATIVE); KETONES,URINE NEGATIVE (NEGATIVE); LEUKOCYTE ESTERASE,URINE TRACE (NEGATIVE); NITRITE,URINE NEGATIVE (NEGATIVE); PROTEIN,URINE NEGATIVE (NEGATIVE); URINE SPECIFIC GRAVITY 1.015; UROBILINOGEN,URINE NEGATIVE mg/dL (<2.0)
== END 2019-12-21 21:25 | disposition home or self-care (01) ==
LOC: ER 19:48
DX: R10.2 Pelvic and perineal pain (principal); M54.9 Dorsalgia, unspecified; R30.0 Dysuria; Z88.0 Allergy status to penicillin; Z88.2 Allergy status to sulfonamides; Z87.442 Personal history of urinary calculi
CPT/HCPCS: 99284; 87086; 81001; J3490

== ENCOUNTER 2020-01-15 20:39 | Emergency (ER) | payer MEDICAID ==
--- NOTE | 2020-01-15 21:28 | ER Document Report ---
ED Medical Screen (RME) - General Chief Complaint: Abdominal Pain Stated Complaint: ABDOMINAL PAIN Time Seen by Provider: 01/15/20 21:16 TRAVEL OUTSIDE OF THE [place] IN LAST 30 DAYS: No - HPI Notes: 01/15/20 21:23 19 yr old female presents with complaints of flank pain and pelvic pain that has been ongoing for the last year. Patient states she had a Nexplanon placed a year ago and since then she has had multiple periods of irregular periods, reports continuous abdominal cramping. Reports she does have her right ovary enlarged when she had an ultrasound a few months ago. Patient states she is not actively bleeding right now. Patient states she is having some irregular menstrual cycles that cause her to become more depressed she is not eating well. Denies any SI or HI. Is currently on Zoloft to help manage her pain. Patient states she had her Nexplanon placed 4 hours away and would like to find a place to see if she can have it taken out. Reports nausea but denies any vomiting or diarrhea. Denies any fever chills, chest pain or shortness of breath. I have greeted and performed a rapid initial assessment of this patient. A comprehensive ED assessment and evaluation of the patient, analysis of test results and completion of the medical decision making process will be conducted by additional ED providers. To be in triage unable to do a full physical examination with a pelvic exam. Patient will be going to the main emergency room for further examination and evaluation PHYSICAL EXAMINATION: GENERAL: Well-appearing, well-nourished and in no acute distress. HEAD: Atraumatic, normocephalic. EYES: Pupils equal round extraocular movements intact, conjunctiva are normal. NECK: Normal range of motion CV: s1, s2 regular LUNGS: No respiratory distress abd: R>L CVA tenderness, R>L pelvic pain 01/15/20 21:27 - Related Data Allergies/Adverse Reactions: amoxicillin Allergy (Verified 01/15/20 21:16) ondansetron [From Zofran] Allergy (Verified 01/15/20 21:16) Penicillins Allergy (Verified 01/15/20 21:16) Sulfa (Sulfonamide Antibiotics) Allergy (Verified 01/15/20 21:16) Home Medications: ZOLOFT. MITRAZTIPE Past Medical History - Social History Frequency of alcohol use: None Drug Abuse: None Renal/ Medical History: Reports: Hx Kidney Stones Psychiatric Medical History: Reports: Hx Depression - Immunizations Immunizations up to date: Yes Hx Diphtheria, Pertussis, Tetanus Vaccination: Yes Physical Exam - Vital signs Vitals: Temp 97.9 F 01/15/20 21:16 Course - Vital Signs Vital signs: Temp Pulse Resp BP Pulse Ox 97.9 F 01/15/20 21:16
--- NOTE | 2020-01-15 22:12 | RADIOLOGY REPORT (SQ) ---
Ultrasound of the pelvis: 01/15/2020 9:10 PM CDT HISTORY: 19-year-old patient with pelvic pain. TECHNIQUE: Multiple grayscale and color Doppler images of the pelvis were obtained transabdominally. COMPARISON: None available FINDINGS: The uterus measures 8.2 x 5.0 x 3.4 cm. The endometrium measures 5.0 mm in thickness. No myometrial mass is seen. No free intraperitoneal fluid is seen within the posterior cul-de-sac. The right ovary measures 4.4 x 2.9 x 2.0 cm. The left ovary measures 2.3 x 2.2 x 1.7 cm. There is a probable physiologic cysts within the right ovary measuring up to 2.1 cm. Arterial waveforms were obtained from both ovaries. IMPRESSION: No sonographic abnormality is seen within the pelvis.
--- NOTE | 2020-01-15 22:15 | RADIOLOGY REPORT (SQ) ---
EXAM DESCRIPTION: US RETROPERITONEUM COMPLETED DATE/TME: 01/15/2020 21:21 CLINICAL HISTORY: 19 years, Female, R>L CVA pain COMPARISON: None. TECHNIQUE: LIMITATIONS: None. FINDINGS: The right kidney measures 9.8 cm in length. The left kidney measures 9.2 cm in length. There is a 7-8 mm stone in the mid left kidney, but there is no hydronephrosis. No hydronephrosis or stone on the right side. The urinary bladder is unremarkable. Bilateral ureteral jets were observed within the urinary bladder. IMPRESSION: Left renal stone without hydronephrosis. copyright 2010 [employer]- All Rights Reserved
[2020-01-15 22:35] LABS: APPEARANCE,URINE CLEAR; BILIRUBIN,URINE NEGATIVE (NEGATIVE); COLOR,URINE YELLOW; GLUCOSE, URINE NEGATIVE (NEGATIVE); KETONES,URINE NEGATIVE (NEGATIVE); LEUKOCYTE ESTERASE,URINE SMALL (NEGATIVE); NITRITE,URINE NEGATIVE (NEGATIVE); PROTEIN,URINE NEGATIVE (NEGATIVE); URINE SPECIFIC GRAVITY 1.006; UROBILINOGEN,URINE NEGATIVE mg/dL (<2.0)
[2020-01-15] MEDS ORDERED: HYDROCODONE/ACETAMINOPHEN 5-325 MG (6 TAB/ER DISP) PO PRN (23:25)
--- NOTE | 2020-01-15 23:27 | ER Document Report ---
HPI - HPI Time Seen by Provider: 01/15/20 21:16 Pain Level: 4 Notes: Patient is an otherwise healthy 19-year-old female presenting to the emergency department chief complaint of abnormal vaginal bleeding and low abdominal cramping that has been present for the last 2 months intermittently. Patient reports she believes it is related to her Nexplanon control implant and she is "tired of it". Patient denies any fever, chills, nausea, vomiting, diarrhea. She has not had any abnormal vaginal discharge. She does not have a doctor in this area and is hoping to have her Nexplanon taken out. - ROS Systems Reviewed and Negative: Yes All other systems reviewed and negative - CONSTITUTIONAL Constitutional: DENIES: Fever, Chills - GASTROINTESTINAL Gastrointestinal: REPORTS: Abdominal Pain - Low abdominal cramping x2 ramírez - REPRODUCTIVE Reproductive: REPORTS: Abnormal bleeding / discharge - Intermittent vaginal bleeding. DENIES: : Past Medical History - General Information source: Patient - Social History Smoking Status: Never Smoker Frequency of alcohol use: None Drug Abuse: None Family History: Reviewed & Not Pertinent Patient has homicidal ideation: No Renal/ Medical History: Reports: Hx Kidney Stones Psychiatric Medical History: Reports: Hx Depression Surgical Hx: Negative - Immunizations Immunizations up to date: Yes Hx Diphtheria, Pertussis, Tetanus Vaccination: Yes Vertical Provider Document - CONSTITUTIONAL Notes: PHYSICAL EXAMINATION: GENERAL: Well-appearing, well-nourished and in no acute distress. HEAD: Atraumatic, normocephalic. EYES: Pupils equal round and reactive to light, extraocular movements intact, conjunctiva are normal. ENT: Nares patent, oropharynx clear without exudates. Moist mucous membranes. NECK: Normal range of motion, supple without lymphadenopathy LUNGS: Breath sounds clear to auscultation bilaterally and equal. No wheezes rales or rhonchi. HEART: Regular rate and rhythm without murmurs ABDOMEN: Soft, nontender, nondistended abdomen. No guarding, no rebound. No masses appreciated. Female : deferred Musculoskeletal: Normal range of motion, no pitting or edema. No cyanosis. NEUROLOGICAL: Cranial nerves grossly intact. Normal speech, normal gait. Normal sensory, motor exams PSYCH: Normal mood, normal affect. SKIN: Warm, Dry, normal turgor, no rashes or lesions noted. - INFECTION CONTROL TRAVEL OUTSIDE OF THE [place] IN LAST 30 DAYS: No Course - Re-evaluation Re-evalutation: Patient appears well, nontoxic, vital signs reviewed and are within normal limits. Patient's work-up today is unremarkable. Her abdomen is soft and nontender. Her H&H is within normal limits. She has had this problem ongoing for the last 2 months. Unlikely any acute process. I explained to the patient that we do not take out Nexplanon here in the emergency department but that she can go to the health department for this. Health department contact information was given to the patient and patient verbalized understanding and agreement with same. Patient did ask for some type of pain medication stronger than Tylenol or ibuprofen that she can take, she will be dispensed with a sixpack of [employer] vascular solution. - Vital Signs Vital signs: Temp Pulse Resp BP Pulse Ox 98.6 F 80 18 111/69 99 01/15/20 22:56 01/15/20 22:56 01/15/20 22:56 01/15/20 22:56 01/15/20 22:56 - Laboratory Laboratory results interpreted by me: 01/15/20 22:20 Urine Blood SMALL H Ur Leukocyte Esterase SMALL H Discharge - Discharge Clinical Impression: Vaginal bleeding, Cystitis Condition: Stable Disposition: HOME, SELF-CARE Additional Instructions: Please take medication as prescribed. Follow-up with the department so that they can take out your Nexplanon. You have been seen in the Emergency Department (ED) for abdominal pain. Your evaluation did not identify a clear cause of your symptoms but was generally reassuring. Please follow up with your doctor as soon as possible regarding today's emergent visit and the symptoms that are bothering you. Return to the ED if your abdominal pain worsens or fails to improve, you develop bloody vomiting, bloody diarrhea, you are unable to tolerate fluids due to vomiting, fever greater than 101, or other symptoms that concern you. Prescriptions: Nitrofurantoin Monohyd/M-Cryst [Macrobid 100 mg Capsule] 100 mg PO BID #10 cap Referrals: [facility] [Outside] - Follow up as needed
[2020-01-15 23:40] VITALS: BP 111/64
== END 2020-01-15 23:41 | disposition home or self-care (01) ==
LOC: ER 20:39
DX: N93.9 Abnormal uterine and vaginal bleeding, unspecified (principal); N30.90 Cystitis, unspecified without hematuria; R10.30 Lower abdominal pain, unspecified; Z97.5 Presence of (intrauterine) contraceptive device
CPT/HCPCS: 76770; 76856; 81001; 81025; 93976; 99284

== ENCOUNTER 2020-01-23 01:04 | Emergency (ER) | payer MEDICAID ==
[2020-01-23 04:16] VITALS: BP 105/73
== END 2020-01-23 06:17 | disposition left against medical advice (07) ==
LOC: ER 01:04
DX: Z53.21 Procedure and treatment not carried out due to patient leaving prior to being seen by health care provider (principal); R10.9 Unspecified abdominal pain

== ENCOUNTER 2020-05-01 20:17 | Emergency (ER) | payer MEDICAID | END 2020-05-01 22:16 | disposition left against medical advice (07) | LOC: ER 20:17 | DX: Z53.21 Procedure and treatment not carried out due to patient leaving prior to being seen by health care provider (principal) ==